=== PATIENT | female | born 1935 | race Caucasian/White ===

== ENCOUNTER 2020-08-18 08:26 | Observation (INO) | payer OTHER ==
[~2020-08-18] VITALS: Ht 152.4 cm; Wt 60.3 kg
[2020-08-18 08:28] VITALS: BP 146/54
[2020-08-18] MEDS ORDERED: DIVALPROEX SOD125 M1 PO (08:49)
[2020-08-18] MEDS ORDERED: NORVASC10 MG PO (08:49)
[2020-08-18] MEDS ORDERED: FERROUS SULFAT324 M1 PO (08:50)
[2020-08-18] MEDS ORDERED: LEVOTHYROXINE100 MC2 PO (08:50)
[2020-08-18] MEDS ORDERED: LOSARTAN POTAS100 MG PO (08:50)
[2020-08-18 08:51] LABS: ABSOLUTE EOSINOPHILS 0.2 thou/uL (0.0-0.7); ABSOLUTE LYMPHOCYTES 0.9 thou/uL (0.8-5.3); ABSOLUTE MONOCYTES 0.4 thou/uL (0.0-1.2); BASOPHILS 1.3 %; EOSINOPHILS 6.6 %; HEMOGLOBIN 9.7 gm/dL (12.0-15.0); LYMPHOCYTES 24.5 %; MCH 30.9 pg (26.0-34.0); MCHC 33.6 g/dL (28.0-37.0); MONOCYTES 10.8 %; MPV 7.3 fl. (7.2-11.1); NUCLEATED RBCS 0 /100WBC; PLATELET COUNT* 227 thou/uL (150-400); POLYS 56.8 %; RBC 3.15 mil/uL (4.20-5.00); WBC 3.6 thou/uL (4.0-11.0)
[2020-08-18] MEDS ORDERED: MELATONIN5 MG SUBLING (08:51)
[2020-08-18] MEDS ORDERED: BASE B,POLYETHYL1 GM PO (08:51)
[2020-08-18] MEDS ORDERED: SENEXON-S 50-81 EACH PO (08:52)
[2020-08-18] MEDS ORDERED: VITAMIN D3-ALO1 EACH PO (08:53)
[2020-08-18] MEDS ORDERED: XARELTO15 MG PO (08:53)
[2020-08-18] MEDS ORDERED: XARELTO20 MG PO (08:54)
[2020-08-18] MEDS ORDERED: TYLENOL325 M1 PO (08:55)
[2020-08-18 09:09] LABS: CALCIUM 8.7 mg/dL (8.5-10.1); CREATININE 1.1 mg/dL (0.6-1.3); POTASSIUM 4.8 mmol/L (3.5-5.1)
[2020-08-18 09:20] LABS: ALBUMIN 2.8 g/dL (3.4-5.0); MAGNESIUM 2.1 mg/dL (1.8-2.4); TOTAL BILIRUBIN 0.3 mg/dL (<0.1-1.0); TOTAL PROTEIN 6.2 g/dL (6.4-8.2)
--- NOTE | 2020-08-18 15:35 | EKG ---
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: NATHANAEL : 1935 Requested By: Pacheco Robison Order Number: [id number] MD: Shashi Peraza Measurements Intervals [place] Rate: 63 P: 35 [place]: 168 QRS: 4 QRSD: 81 T: 23 QT: 412 QTc: 422 Interpretive Statements Sinus rhythm Atrial premature complex Abnormal R-wave progression, early transition No previous ECG available for comparison Electronically Signed On 08-18-2020 15:35:11 CDT by Shashi Peraza [email or web address] <ELECTRONICALLY SIGNED> By: Shashi Peraza MD, [facility] 08/18/20 1535 0836 0836 Shashi Peraza MD, [facility] /EPI
[2020-08-18 16:00] VITALS: BP 104/44
[2020-08-18 17:00] VITALS: BP 177/51
[2020-08-18 23:53] VITALS: BP 142/49
[2020-08-19 04:29] VITALS: BP 139/50
[2020-08-19 04:55] LABS: HEMATOCRIT 25.9 % (37.0-47.0); HEMOGLOBIN 8.9 gm/dL (12.0-15.0); MCH 30.9 pg (26.0-34.0); MCHC 34.2 g/dL (28.0-37.0); MCV 90.4 fL (80.0-100.0); MPV 7.8 fl. (7.2-11.1); RBC 2.87 mil/uL (4.20-5.00); RDW-CV 13.6 % (10.5-14.5); WBC 3.3 thou/uL (4.0-11.0)
[2020-08-19 05:12] LABS: CALCIUM 8.3 mg/dL (8.5-10.1); POTASSIUM 4.5 mmol/L (3.5-5.1)
[2020-08-19 08:00] VITALS: BP 146/41
--- NOTE | 2020-08-19 10:04 | EKG ---
[place] [address] ELECTROCARDIOGRAM REPORT Name: CHAUNCEY JAIN Room: [address]#: [id number] Admission: 08/18/20 Attend Phys: Kike Calixto Discharge: Date of : 33 Date of Service: 08/19/2015 Report #: [id number] THIS REPORT FOR: //name// [facility] Test Date: 2020-08-19 Test Time: 08:15:41 Pat Name: CHAUNCEY JAIN Department: Room: [address] Gender: F Soft Boarder: : 1935 Requested By: Rachel Weir Order Number: [id number] Reading MD: Giovanni Gay Measurements Intervals [place] Rate: 60 P: 44 [place]: 178 QRS: -1 QRSD: 84 T: 9 QT: 415 QTc: 415 Interpretive Statements Sinus rhythm Abnormal R-wave progression, early transition Compared to ECG 08/18/2020 08:36:36 Atrial premature complex(es) no longer present Electronically Signed On 08-19-2020 10:04:36 CDT by Giovanni Gay [email or web address] <ELECTRONICALLY SIGNED> By: Giovanni Gay MD, [facility] 08/19/20 1004 4 4 Giovanni Gay MD, [facility] /EPI
[2020-08-19 12:00] VITALS: BP 126/44
--- NOTE | 2020-08-19 12:06 | 2DMMODE ---
[place] [address] 2 D/M-MODE ECHOCARDIOGRAM Name: CHAUNCEY JAIN Room: [address] Alexis#: [id number] Admission: 08/18/20 Attend Phys: Kike Calixto Discharge: Date of : 33 Date of Service: 08/19/20 1206 Report #: [id number] THIS REPORT FOR: cc: Porsha Gramajo Kathryn C. DO Liston, Michael J. MD [facility] ~ APPROVED REPORT Study performed: 08/19/2020 09:45:52 EXAM: Comprehensive 2D, Doppler, and color-flow Echocardiogram Patient Location: In-Patient Room #: [facility] Status: routine BSA: 1.57 HR: 60 bpm BP: 148/41 mmHg Rhythm: NSR Other Information Study Quality: Good Indications Murmur 2D Dimensions IVSd: 8.91 (7-11mm) LVOT Diam: 19.22 (18-24mm) LVDd: 45.61 mm PWd: 10.14 (7-11mm) LVDs: 29.41 (25-40mm) Aortic Root: 27.14 mm Volumes Left Atrial Volume (Systole) LA ESV Index: 30.50 mL/m2 Aortic Valve AoV Peak Stu.: 2.25 m/s AO Peak Gr.: 20.32 mmHg LVOT Max P.03 mmHg AO Mean Gr.: 10.89 mmHg LVOT Mean P.43 mmHg LVOT Max V: 1.12 m/s AO V2 VTI: 48.02 cm LVOT Mean V: 0.71 m/s TIMA (VTI): 1.56 cm2 LVOT V1 VTI: 25.74 cm AI [place]: 2.71 m/s2 [place] [address] 2 D/M-MODE ECHOCARDIOGRAM Name: CHAUNCEY JAIN Room: [address] M.R.#: [id number] Admission: 08/18/20 Attend Phys: Kike Calixto Discharge: Date of : 33 Date of Service: 08/19/20 1206 Report #: [id number] AI PHT: 394.47 ms Mitral Valve E/A Ratio: 0.80 MV Decel. Time: 275.57 ms MV E Max Stu.: 0.62 m/s MV PHT: 79.91 ms MVA (PHT): 2.75 cm2 TDI E/Lateral E': 6.89 E/Medial E': 8.86 Medial E' Stu.: 0.07 m/s Lateral E' Stu.: 0.09 m/s Pulmonary Valve PV Peak Stu.: 0.88 m/s PV Peak Gr.: 3.10 mmHg Tricuspid Valve RAP Estimate: 5.00 mmHg TR Peak Gr.: 19.47 mmHg RVSP: 24.00 mmHg PA Pressure: 24.00 mmHg Left Ventricle The left ventricle is normal size. There is normal LV segmental wall motion. There is normal left ventricular wall thickness. Left ventricular systolic function is normal. LVEF is 60-65%. Grade I - abnormal relaxation pattern. Right Ventricle The right ventricle is normal size. The right ventricular systolic function is normal. Atria The left atrium size is normal. The right atrium size is normal. Aortic Valve Mild aortic valve sclerosis. Moderate aortic regurgitation. Mild to moderate aortic stenosis. Mitral Valve The mitral valve is normal in structure. There is no mitral valve regurgitation noted. No evidence of mitral valve stenosis. Tricuspid Valve The tricuspid valve [place] [address] 2 D/M-MODE ECHOCARDIOGRAM Name: CHAUNCEY JAIN Krys Room: [address]#: [id number] Admission: 08/18/20 Attend Phys: Kike Calixto Discharge: Date of : 33 Date of Service: 08/19/20 1206 Report #: [id number] regurgitation. No pulmonary hypertension. Pulmonic Valve The pulmonary valve is normal in structure. There is no pulmonic valvular regurgitation. Great Vessels The aortic root is normal in size. IVC is normal in size and collapses >50% with inspiration. Pericardium There is no pericardial effusion. <Conclusion> The left ventricle is normal size. There is normal left ventricular wall thickness. Left ventricular systolic function is normal. LVEF is 60-65%. Grade I - abnormal relaxation pattern. Mild aortic valve sclerosis. Moderate aortic regurgitation. Mild to moderate aortic stenosis. Trace tricuspid regurgitation. No pulmonary hypertension. IVC is normal in size and collapses >50% with inspiration. <ELECTRONICALLY SIGNED> By: Giovanni Gay MD, FACC 08/19/20 1206 1206 05 Giovanni Gay MD, FACC /INF
== END 2020-08-19 15:03 | disposition home or self-care (01) ==
LOC: M.ERS 08:26 → M.2W 10:20 → M.TBA-ER 10:20 → M.2W 10:20
PROVIDERS: Emergency Medicine Emergency Medical Services; Internal Medicine; ADMIT Internal Medicine; ATTEND Internal Medicine
DX: R07.89 Other chest pain (principal); Z20.822 Contact with and (suspected) exposure to COVID-19; D64.9 Anemia, unspecified; F03.90 Unspecified dementia, unspecified severity, without behavioral disturbance, psychotic disturbance, mood disturbance, and anxiety; S42.302K Unspecified fracture of shaft of humerus, left arm, subsequent encounter for fracture with nonunion; E03.9 Hypothyroidism, unspecified; F32.9 Major depressive disorder, single episode, unspecified; I12.9 Hypertensive chronic kidney disease with stage 1 through stage 4 chronic kidney disease, or unspecified chronic kidney disease; N18.9 Chronic kidney disease, unspecified; E78.5 Hyperlipidemia, unspecified; R01.1 Cardiac murmur, unspecified; X58.XXXD Exposure to other specified factors, subsequent encounter; Z79.82 Long term (current) use of aspirin; Z79.899 Other long term (current) drug therapy